=== PATIENT | male | born 1975 | race Caucasian/White ===

== ENCOUNTER 2018-08-21 12:34 | Outpatient (CLI) | payer BC ==
[2018-08-21] MEDS ORDERED: AMLO-150 PO (13:05)
[2018-08-21] MEDS ORDERED: CALC1CAP8 PO (13:14)
== END 2018-08-21 23:59 | disposition home or self-care (01) ==
LOC: STAR 12:34
PROVIDERS: ATTEND Orthopaedic Surgery
DX: Z02.9 Encounter for administrative examinations, unspecified (principal)

== ENCOUNTER 2018-08-27 07:09 | Day surgery (SDC) | payer BC ==
[2018-08-21 13:14] VITALS: BP 147/100
[~2018-08-27] VITALS: Ht 175.3 cm; Wt 106.7 kg
[~2018-08-27 07:09] MED LIST: AMLO-150 PO; CALC1CAP8 PO; LIDOCAINE 1%-EPI 1:100K, 20ML ONE; ROPIvacaine/PF 0.5%, 30 ML ONE
[2018-08-27] MEDS ORDERED: LACTATED RINGERS 1,000 ML IV SCH (07:39)
[2018-08-27 07:40] VITALS: BP 147/100
[2018-08-27] MEDS ORDERED: ACETAMINOPHEN 325 MG TABLET PO PRN (08:00)
[2018-08-27] MEDS ORDERED: METOPROLOL 1 MG/ML, 5ML IV PRN (08:00)
[2018-08-27] MEDS ORDERED: PROMETHAZINE 25 MG/ML, 1ML IV PRN (08:00)
[2018-08-27] MEDS ORDERED: EPHEDRINE 50 MG/ML, 1ML IVPush PRN (08:00)
[2018-08-27] MEDS ORDERED: ALBUTEROL SULFATE 2.5 MG/3 ML NPPB PRN (08:00)
[2018-08-27] MEDS ORDERED: hydrALAzine 20 MG/ML, 1ML IV PRN (08:00)
[2018-08-27] MEDS ORDERED: LABETALOL 5MG/ML, 20ML IV PRN (08:00)
[2018-08-27] MEDS ORDERED: MEPERIDINE/PF 25MG/0.5ML IVPush PRN (08:00)
[2018-08-27] MEDS ORDERED: OXYcodone 5 MG/5 ML ORAL.SOL UDC PO PRN (08:00)
[2018-08-27] MEDS ORDERED: ONDANSETRON 2MG/ML, 2ML IV PRN (08:00)
[2018-08-27] MEDS ORDERED: FENTANYL PF 100 MCG/2ML ONE ×2 (08:03→09:27)
[2018-08-27] MEDS ORDERED: MIDAZOLAM 1 MG/ML, 2ML ONE (08:03)
[2018-08-27] MEDS ORDERED: ONDANSETRON 2MG/ML, 2ML ONE (08:44)
[2018-08-27] MEDS ORDERED: KETOROLAC 30 MG/1 ML ONE (08:44)
[2018-08-27] MEDS ORDERED: CEFAZOLIN 1,000 MG ONE ×2 (08:44)
[2018-08-27] MEDS ORDERED: DEXAMETHASONE 4 MG/ML, 1ML ONE ×2 (08:44)
[2018-08-27] MEDS ORDERED: PROPOFOL 10 MG/ML, 20ML ONE (08:44)
[2018-08-27] MEDS ORDERED: ACETAMINOPHEN 650 MG/20.3 ML UDC ONE (09:27)
[2018-08-27] MEDS ORDERED: OXYcodone 5 MG/5 ML ORAL.SOL UDC ONE (09:28)
[2018-08-27] MEDS: FENTANYL PF 100 MCG/2ML IV PRN ×2 (09:30→09:40)
[2018-08-27] MEDS ORDERED: HYDROmorphone 2 MG/ML, 1ML ONE (09:48)
[2018-08-27] MEDS: HYDROmorphone 2 MG/ML, 1ML IVPush PRN ×2 (09:49→10:11)
== END 2018-08-27 13:30 | disposition home or self-care (01) ==
LOC: OUT 07:09
PROVIDERS: ATTEND Orthopaedic Surgery
DX: S83.232A Complex tear of medial meniscus, current injury, left knee, initial encounter (principal); M94.262 Chondromalacia, left knee; M65.862 Other synovitis and tenosynovitis, left lower leg; M67.52 Plica syndrome, left knee; I10 Essential (primary) hypertension; X58.XXXA Exposure to other specified factors, initial encounter; Y93.89 Activity, other specified; Y92.89 Other specified places as the place of occurrence of the external cause; Y99.8 Other external cause status
CPT/HCPCS: 29881; J0690; J1100; J1170; J1885; J2250; J2405; J2704; J2795; J3010; J3490; J7120